=== PATIENT | female | born 2000 | race Caucasian/White ===

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

== ENCOUNTER → 2021-02-09 | Emergency (ER) | payer MEDICAID ==
[~2021-02-09] VITALS: Ht 160 cm; Wt 53.2 kg
[~2021-02-09] MED LIST changes: +AMOXICILLIN 50500 MG PO
[2021-02-09 12:22] LABS: BASO % 0.8 % (0.0-2.0); EOS % 0.3 % (0-4.0); GRAN # 1.9 K/mm3 (1.4-6.5); GRAN % 51.9 % (42.2-75.2); HEMATOCRIT 41.1 % (35.0-45.0); HEMOGLOBIN 14.1 g/dl (12.0-15.0); LYMPH # 1.5 K/mm3 (1.2-3.4); LYMPH % 40.9 % (20.0-51.0); MEAN CELL VOLUME 82 fl (80.0-95.0); MEAN CORPUSCULAR HEMOGLOBIN 28 pg (26.0-32.0); MEAN CORPUSCULAR HGB CONC 34 g/dl (33.0-37.0); MEAN PLATELET VOLUME 9.6 fl (7.4-10.4); MONO # 0.2 K/mm3 (0.1-0.6); MONO % 5.6 % (1.7-9.3); PLATELET COUNT 254 K/mm3 (130-400); REDCELL DISTRIBUTION WIDTH-CV 12.5 % (11.5-14.5)
[2021-02-09 12:49] LABS: ALANINE AMINOTRANSFERASE 13 U/L (0-55); ALBUMIN 4.5 gm/dL (3.5-5.0); ALKALINE PHOSPHATASE 44 U/L (40-150); ANION GAP 8 mmol/L (7-16); AST,SGOT 16 U/L (5-34); BILIRUBIN,TOTAL 0.7 mg/dL (0.2-1.2); BLOOD UREA NITROGEN 8 mg/dL (8-21); CALCIUM 9.9 mg/dL (8.4-10.2); CARBON DIOXIDE 22 mmol/L (22-29); CHLORIDE 109 mmol/L (98-107); CREATININE, serum 0.75 mg/dL (0.57-1.11); GLUCOSE 121 mg/dL (70-99); POTASSIUM 3.6 mmol/L (3.5-4.5); SODIUM 139 mmol/L (136-145); TOTAL PROTEIN 7.5 gm/dL (6.2-8.1)
[2021-02-09 13:00] LABS: ALCOHOL(ethanol),MEDICAL < 10 mg/dL (0-10)
[2021-02-09 13:30] LABS: TRICYCLIC ANTIDEPRESS URINE NEGATIVE
[2021-02-09 21:00] VITALS: TEMP 97.8
[2021-02-10 00:18] VITALS: BP 114/56; PULSE 74
== END ==
LOC: COL.ER 11:25
PROVIDERS: Personal Emergency Response Attendant
DX: F32.A Depression, unspecified (principal); Z20.822 Contact with and (suspected) exposure to COVID-19; Z79.899 Other long term (current) drug therapy

== ENCOUNTER 2022-04-23 20:30 | Emergency (ER) | payer MEDICAID ==
[~2022-04-23] VITALS: Ht 165.1 cm; Wt 61.4 kg
[2022-04-23 20:34] VITALS: TEMP 99
[2022-04-23 20:55] LABS: COLLECTION METHOD CLEAN CATCH
[2022-04-23 20:59] LABS: BASO % 0.7 % (0.0-2.0); EOS # 0.1 K/mm3 (0.0-0.7); EOS % 0.9 % (0.0-4.0); GRAN # 3.2 K/mm3 (1.4-6.5); GRAN % 54.7 % (42.2-75.2); HEMATOCRIT 37.7 % (35.0-45.0); HEMOGLOBIN 12.9 g/dl (12.0-15.0); LYMPH % 34.5 % (20.0-51.0); MEAN CELL VOLUME 85 fl (80.0-95.0); MEAN CORPUSCULAR HEMOGLOBIN 29 pg (26-32); MEAN CORPUSCULAR HGB CONC 34 g/dl (33.0-37.0); MEAN PLATELET VOLUME 9.1 fl (7.4-10.4); MONO # 0.5 K/mm3 (0.1-0.6); PLATELET COUNT 276 K/mm3 (130-400); RED BLOOD COUNT 4.46 M/mm3 (4.10-5.30); REDCELL DISTRIBUTION WIDTH-CV 12.9 % (11.5-14.5)
[2022-04-23 21:00] LABS: PH 7.5 (5.0-8.5); URINE APPEARANCE Hazy (CLEAR/HAZY); URINE COLOR Yellow (YELLOW); URINE GLUCOSE Negative (NEGATIVE); URINE PROTEIN(semi-quant) Negative (NEGATIVE)
[2022-04-23 21:01] LABS: URINE BLOOD Negative (NEGATIVE); URINE KETONE Negative (NEGATIVE); URINE NITRATE Negative (NEGATIVE); URINE UROBILINOGEN 0.2 E.U/dL (0.2-1.0)
[2022-04-23 21:07] LABS: AMORPHOUS CRYSTAL Present (NOT PRESENT); URINE BACTERIA Rare /hpf (NONE SEEN); URINE RBC 0-2 /hpf (0-2)
[2022-04-23 21:20] LABS: BILIRUBIN,TOTAL 0.3 mg/dL (0.2-1.2); C-REACTIVE PROTEIN 0.48 mg/dL (0.00-0.50); CALCIUM 9.1 mg/dL (8.4-10.2); CREATININE, serum 0.69 mg/dL (0.57-1.11); POTASSIUM 3.6 mmol/L (3.5-4.5); TOTAL PROTEIN 7.3 gm/dL (6.2-8.1)
[2022-04-23] MEDS ORDERED: BUSPAR5 MG PO (21:45)
[2022-04-23] MEDS ORDERED: LEXAPRO 10MG10 MG PO (21:45)
[2022-04-23] MEDS ORDERED: ZOFRAN ODT4 MG PO (23:06)
[2022-04-23 23:08] VITALS: BP 100/52; PULSE 85
[2022-09-15] MEDS ORDERED: PRISTIQ25 MG PO (20:38)
[2022-09-15] MEDS ORDERED: TOPROL XL 50MG50 MG PO (20:38)
== END 2022-04-23 23:25 | disposition home or self-care (01) ==
LOC: COL.ER 20:30
PROVIDERS: Nurse Practitioner
DX: R10.31 Right lower quadrant pain (principal); Z32.02 Encounter for pregnancy test, result negative
CPT/HCPCS: J1790; J2270; J2405; J7030; Q9967

== ENCOUNTER 2023-04-01 09:47 | Inpatient (IN) | payer MEDICAID ==
[~2023-04-01] VITALS: Ht 160 cm; Wt 81.3 kg
[2023-04-01] VITALS (31 sets, daily range): BP systolic 109–138; BP diastolic 58–83; PULSE 71–120; TEMP 98–98.7
[~2023-04-01 09:47] MED LIST changes: +BUSPAR5 MG PO; +LEXAPRO 10MG10 MG PO; +PRISTIQ25 MG PO; +TOPROL XL 50MG50 MG PO
--- NOTE | 2023-04-01 10:45 | NUR ---
PT ORENITED TO ROOM AND CHANGED INTO GOWN. PLACED ON MONITORS. FHT CATAGORY 1 TRACING. VS WNL. BP 125/73 P120. PT REPORTS HX OF OTHOSTATIC TACHYCARDIA. PT REPORTS REGULAR MOVEMENT AND DENIES LOF & VB.
[2023-04-01] MEDS ORDERED: TOPROL XL 25MG25 MG PO (12:04)
[2023-04-01] MEDS ORDERED: PRISTIQ 50 MG T50 MG PO (12:04)
[2023-04-01] MEDS ORDERED: PRENATAL TABLET PO (12:05)
[2023-04-01 12:16] LABS: BASO % 0.3 % (0.0-2.0); EOS # 0.1 K/mm3 (0.0-0.7); EOS % 1.2 % (0.0-4.0); GRAN # 4.6 K/mm3 (1.4-6.5); GRAN % 68.4 % (42.2-75.2); LYMPH # 1.6 K/mm3 (1.2-3.4); LYMPH % 22.9 % (20.0-51.0); MEAN CELL VOLUME 87 fl (80.0-100.0); MEAN CORPUSCULAR HEMOGLOBIN 30 pg (27-31); MEAN CORPUSCULAR HGB CONC 34 g/dl (33.0-37.0); MEAN PLATELET VOLUME 9.6 fl (7.4-10.4); MONO # 0.4 K/mm3 (0.1-0.6); MONO % 6.5 % (1.7-9.3); PLATELET COUNT 289 K/mm3 (130-400); RED BLOOD COUNT 4.06 M/mm3 (4.10-5.30); REDCELL DISTRIBUTION WIDTH-CV 14.2 % (11.5-14.5)
[2023-04-01 12:25] LABS: HEMATOCRIT 35.4 % (37.0-47.0)
[2023-04-01 12:34] LABS: ALBUMIN 2.5 gm/dL (3.5-5.0); BILIRUBIN,TOTAL 0.4 mg/dL (0.2-1.2); CALCIUM 9.4 mg/dL (8.4-10.2); CREATININE, serum 0.67 mg/dL (0.57-1.11); TOTAL PROTEIN 6.2 gm/dL (6.2-8.1)
--- NOTE | 2023-04-01 13:14 | NUR ---
1222- Called Blas for pt requested epidural. 1258- Blas at bedside discussing epidural side effects. Pt repositioned to sitting. O2 and BP monitors applied. 1314- Test dose. 1319- Pt tolerated proceedure well. Pt repostioned to laying wedged left. VS WNL.
--- NOTE | 2023-04-01 16:18 | NUR ---
1600- PT COMPLAINING OF LOTS OF RECTAL PRESSURE, BUT UNSURE IF SHE WANTED TO BE CHECKED. FAMILY ENCOURGED PT TO FIND OUT. 1601- SVE 10/100/0. 1602- CALLED DR KLEIN TO UPDATE. HE STATED HE WAS ON HIS WAY. ALSO CALLED CHARGE NURSE AND NURSERY. 1608- DR KLEIN AT BEDSIDE. 1610- PT BEGAN PUSHING. 1618- SPONTANEOUS VAGINAL DELIVERY OF A BABY GIRL. DR KLEIN ENCOURAGED BABY TO BREATH. BABY WAS LAID ON MOM'S CHEST AND NURSERY NURSE DEJA TOOK OVER CARE OF BABY. FOB CUT THE UMBILICAL CORD. 1621- SPONTANEOUS DELIVERY OF THE PLACENTA. NO LACERATIONS THAT NEED REPAIRS NOTED. BLEEDING MINIMAL. BED PUT BACK TOGETHER AND PT REPOSITIONED. PT COVERED WITH WARM BLANKET.
--- NOTE | 2023-04-01 18:30 | NUR ---
See bedside shift report intervention. Fundus now firm with minimal bleeding
--- NOTE | 2023-04-01 20:15 | NUR ---
epidural catheter dc'd. IV to INT, up to bathroom with assist of Evelyn Burroughs, voids small amount, performs own pericare. To room with assist of Evelyn Burroughs. Oriented to room, plan of care.
[2023-04-02 02:30] VITALS: BP 120/68; PULSE 70; TEMP 98.8
[2023-04-02 07:01] VITALS: BP 128/70; PULSE 64; TEMP 97.9
--- NOTE | 2023-04-02 09:08 | NUR ---
Initial visit; Parents thanked [employer] for looking in on them and offering congratulations and God's blessings for the of their daughter. [employer] thanked family for choosing [facility]. Parents state that their experience here with us has been wonderful. [employer] thanked them and mentioned that the nurses and staff seem to love what they do here and it shows.
[2023-04-02] MEDS ORDERED: ROXICODONE 55 MG/TAB PO (09:55)
[2023-04-02] MEDS ORDERED: MOTRIN 800800 MG/TAB PO (09:55)
[2023-04-02 17:30] VITALS: BP 110/61; PULSE 81; TEMP 97.8
[2023-04-02 20:00] VITALS: BP 126/61; PULSE 69; TEMP 98.1
[2023-04-03 08:16] VITALS: BP 100/73; PULSE 68; TEMP 97.8
== END 2023-04-03 11:15 | disposition home or self-care (01) | DRG 807 ==
LOC: OB 09:47 → LDR 10:33 → OB 10:33
PROVIDERS: ADMIT Obstetrics & Gynecology
PROC: 10E0XZZ Delivery of Products of Conception, External Approach (ICD-10-PCS; principal; 2023-04-01)
PROC: 3E033VJ Introduction of Other Hormone into Peripheral Vein, Percutaneous Approach (ICD-10-PCS; 2023-04-01)
PROC: 10907ZC Drainage of Amniotic Fluid, Therapeutic from Products of Conception, Via Natural or Artificial Opening (ICD-10-PCS; 2023-04-01)
DX: O13.4 Gestational [pregnancy-induced] hypertension without significant proteinuria, complicating childbirth (principal); Z37.0 Single live birth; Z3A.38 38 weeks gestation of pregnancy; O69.81X0 Labor and delivery complicated by cord around neck, without compression, not applicable or unspecified; O76 Abnormality in fetal heart rate and rhythm complicating labor and delivery; O99.344 Other mental disorders complicating childbirth; F41.9 Anxiety disorder, unspecified; F43.10 Post-traumatic stress disorder, unspecified; F32.A Depression, unspecified; O99.824 Streptococcus B carrier state complicating childbirth; O71.89 Other specified obstetric trauma; Z23 Encounter for immunization
CPT/HCPCS: J2540; J2590; J2795; J7120

== ENCOUNTER 2023-04-23 11:58 | Emergency (ER) | payer MEDICAID ==
[~2023-04-23] VITALS: Ht 160 cm; Wt 68.6 kg
[~2023-04-23 11:58] MED LIST changes: +PRENATAL TABLET PO; +PRISTIQ 50 MG T50 MG PO; +ROXICODONE 55 MG/TAB PO; +TOPROL XL 25MG25 MG PO
[2023-04-23 12:23] VITALS: TEMP 98.8
[2023-04-23 12:53] LABS: BASO % 0.3 % (0.0-2.0); EOS # 0.1 K/mm3 (0.0-0.7); EOS % 2.3 % (0.0-4.0); GRAN # 3.7 K/mm3 (1.4-6.5); GRAN % 64.6 % (42.2-75.2); HEMOGLOBIN 13.7 g/dl (12.5-16.0); LYMPH # 1.6 K/mm3 (1.2-3.4); LYMPH % 27.2 % (20.0-51.0); MEAN CELL VOLUME 88 fl (80.0-100.0); MEAN CORPUSCULAR HEMOGLOBIN 28 pg (27-31); MEAN CORPUSCULAR HGB CONC 32 g/dl (33.0-37.0); MEAN PLATELET VOLUME 9.4 fl (7.4-10.4); MONO # 0.3 K/mm3 (0.1-0.6); MONO % 5.6 % (1.7-9.3); PLATELET COUNT 312 K/mm3 (130-400); RED BLOOD COUNT 4.87 M/mm3 (4.10-5.30); REDCELL DISTRIBUTION WIDTH-CV 12.7 % (11.5-14.5)
[2023-04-23 13:15] LABS: ALBUMIN 3.7 gm/dL (3.5-5.0); BILIRUBIN,TOTAL 0.5 mg/dL (0.2-1.2); CALCIUM 9.4 mg/dL (8.4-10.2); CREATININE, serum 0.79 mg/dL (0.57-1.11); POTASSIUM 4.1 mmol/L (3.5-4.5); TOTAL PROTEIN 7.1 gm/dL (6.2-8.1)
[2023-04-23 13:31] LABS: COLLECTION METHOD CLEAN CATCH
[2023-04-23 13:53] LABS: MUCOUS Present (NOT PRESENT); PH 8.5 (5.0-8.5); URINE APPEARANCE Clear (CLEAR/HAZY); URINE BLOOD 2+ (NEGATIVE); URINE COLOR Yellow (YELLOW); URINE GLUCOSE Negative (NEGATIVE); URINE KETONE Negative (NEGATIVE); URINE NITRATE Negative (NEGATIVE); URINE PROTEIN(semi-quant) Negative (NEGATIVE); URINE UROBILINOGEN 0.2 E.U/dL (0.2-1.0)
[2023-04-23 13:54] LABS: SQUAMOUS EPITHELIAL 0-2 /hpf (0-10); URINE RBC 0-2 /hpf (0-2)
[2023-04-23 14:53] VITALS: BP 109/57; PULSE 62
== END 2023-04-23 14:54 | disposition home or self-care (01) ==
LOC: COL.ER 11:58
PROVIDERS: Physician Assistant
DX: O90.89 Other complications of the puerperium, not elsewhere classified (principal); R10.31 Right lower quadrant pain
CPT/HCPCS: J1885; J2405; J7030; Q9967

== ENCOUNTER 2023-10-06 08:52 | Emergency (ER) | payer MEDICAID ==
[~2023-10-06] VITALS: Ht 162.6 cm; Wt 63.6 kg
[~2023-10-06 08:52] MED LIST changes: +PREDNISONE50 MG PO
[2023-10-06 09:04] VITALS: TEMP 99.2
[2023-10-06] MEDS ORDERED: Acetaminophen 325 MG TAB PO ONE (09:45)
[2023-10-06 11:03] VITALS: BP 107/65; PULSE 87
== END 2023-10-06 11:03 | disposition home or self-care (01) ==
LOC: COL.ER 08:52
DX: J03.90 Acute tonsillitis, unspecified (principal)

== ENCOUNTER 2023-11-24 18:48 | Emergency (ER) | payer MEDICAID ==
[~2023-11-24] VITALS: Ht 162.6 cm; Wt 61.4 kg
[2023-11-24 18:56] VITALS: TEMP 99
[2023-11-24 21:15] VITALS: BP 118/74; PULSE 77
== END 2023-11-24 21:15 | disposition home or self-care (01) ==
LOC: COL.ER 18:48
DX: R05.9 Cough, unspecified (principal)